=== PATIENT | female | born 1965 | race Caucasian/White ===

== ENCOUNTER 2020-05-02 19:56 | Inpatient (IN) | payer OTHER ==
[2020-05-02] MEDS ORDERED: Dextrose 50% Abboject 50 ML SYRINGE SLOW IVP PRN (20:56)
[2020-05-02] MEDS ORDERED: HUMULIN R 100 UNITS in Sodium Chloride 0.9% 100 ML IVPB SCH (21:00)
[2020-05-02] MEDS ORDERED: Dextrose 5 %-0.45 % NaCl 1,000 ML IV PRN (21:00)
[2020-05-02] MEDS ORDERED: Electrolyte Replacement Protocol FS PRN (21:00)
[2020-05-02] MEDS ORDERED: Sodium Chloride 0.9% 1,000 ML IV PRN ×4 (21:00)
[2020-05-02] MEDS ORDERED: Dextrose 5% in Water 1,000 ML IV PRN (21:00)
[2020-05-02] MEDS ORDERED: NS 0.9% w/ 20 MEQ KCL 1,000 ML/1,000 ML BAG IV PRN ×2 (21:00)
[2020-05-02] MEDS ORDERED: Insulin Regular 300 UNITS/3 ML VIAL IVP SCH (21:00)
[2020-05-02] MEDS ORDERED: D5 1/2 NS w/20 mEq KCL 1,000 ML IV PRN (21:00)
[2020-05-02 21:20] LABS: Anion Gap 22 mmol/L (10-20); BUN (Urea Nitrogen) 7 mg/dL (9.8-20.1); Calc. Creatinine Clearance 0 mL/min (70-130); Carbon Dioxide 11 mmol/L (22-29); Chloride 102 mmol/L (98-107); Glucose 212 mg/dL (70-105); Lipase 8 U/L (8-78); Potassium 3.5 mmol/L (3.5-5.1); Sodium 131 mmol/L (136-145)
[2020-05-02] MEDS ORDERED: Metoclopramide HCl 10 MG/2 ML VIAL ONE (21:28)
[2020-05-02] MEDS ORDERED: diphenhydrAMINE 50 MG/ML VIAL ONE (21:34)
[2020-05-02] MEDS ORDERED: Potassium Chloride 20 MEQ TAB ONE (21:34)
[2020-05-02] MEDS ORDERED: INSULIN REGULAR IN 0.9 % NACL 100 UNIT/100 ML BAG ONE (21:42)
[2020-05-02] MEDS ORDERED: Lidocaine Viscous Sol 2% 15 ml UD Cup ONE (22:09)
[2020-05-02] MEDS ORDERED: Mag-Al 1200 mg/1200 mg/30 ML UDCUP ONE (22:09)
[2020-05-03 00:35] VITALS: BMI 18.9
[2020-05-03] MEDS ORDERED: NS 0.9% w/ 20 MEQ KCL 1,000 ML IV PRN ×2 (00:45)
[2020-05-03] MEDS ORDERED: HUMULIN R 100 UNITS in Sodium Chloride 0.9% 100 ML IVPB SCH (00:45)
[2020-05-03] MEDS ORDERED: Dextrose 5 %-0.45 % NaCl 1,000 ML IV PRN (00:45)
[2020-05-03] MEDS ORDERED: Acetaminophen 325 MG TAB PO PRN (00:45)
[2020-05-03] MEDS ORDERED: Sodium Chloride 0.9% 1,000 ML IV PRN ×4 (00:45)
[2020-05-03] MEDS ORDERED: Electrolyte Replacement Protocol 1 EACH IVPB SCH (00:45)
--- NOTE | 2020-05-03 00:52 | PDOC.HHP ---
Hospitalist HPI - History of Present Illness Nausea and vomiting History of Present Illness: This is a 54-year-old female patient with a history of type 1 diabetes mellitus was transferred from [place] on account of DKA. Of note patient was recently hospitalized for DKA and discharged on 04/30/20 from [facility]. She notes her returning home blood sugars still remain high and she could not sleep. She denies any associated fever chills cough diarrhea shortness of breath or any other significant symptoms. She however had ongoing nausea and vomiting and abdominal pain that has she activated EMS. She was given Zofran and transported to [facility] for care.At [facility] she received 2 L normal saline and was transferred here for higher level care. On arrival here, she was hemodynamically stable besides respiratory rate in 25. She was started on DKA protocol and received GI cocktail diphenhydramine and potassium chloride. Hospitalist team was consulted to admit for DKA At arrival in [facility] blood pressures were 162/62, pulse 91, saturating 100% on room air. She was afebrile temperature 97.6. CBC showed leukocytosis of 12.2, hemoglobin of 16.3, platelets 303. Chemistry showed mild hyponatremia of 120, potassium 3.9, bicarb 8 and lactate was 1.2. Venous blood gases there showed pH of 7.1, PCO2 29.1. Blood glucose was 336. She received 2 L bolus normal saline Hospitalist ROS - Review of Systems Constitutional: denies: fever, chills, sweats, weakness Respiratory: denies: cough, dry, shortness of breath, hemoptysis Cardiovascular: denies: chest pain, palpitations, orthopnea, paroxysmal noc. dyspnea Gastrointestinal: reports: nausea, vomiting, abdominal pain. denies: diarrhea, constipation Genitourinary: denies: dysuria, frequency, incontinence, hematuria Neurological: denies: weakness, numbness, incoordination, change in speech All other systems reviewed; all pertinent +/- noted in HPI/Subj - Medication Medications: Medications: Currently refer to ambulatory order list. Allergies: Lorazepam, more Hospitalist History - Past Medical History Cardiac: reports: no pertinent history Endocrine: reports: Diabetes Other Medical History: Type 2 diabetes mellitus, COPD - Past Surgical History Other Surgical History: Breast implant - Family History Family History: reports: cancer, cardiac disorder, diabetes mellitus - Social History Smoking Status: Current every day smoker Alcohol: reports: None Living Situation: Alone (With a service dog) - Exam General Appearance: awake alert General - other findings: In mild acute distress. Eye: PERRL, anicteric sclera ENT: normocephalic atraumatic, no oropharyngeal lesions Neck: supple, symmetric, no JVD, no thyromegaly Heart: RRR, no murmur, no gallops, no rubs Respiratory: CTAB, no wheezes, no rales, no ronchi Gastrointestinal: soft, non-tender, non-distended, normal bowel sounds Extremities: no cyanosis, no clubbing, no edema Skin: normal turgor, no lesions, no rashes Neurological: cranial nerve grossly intact, normal sensation to touch, no focal deficits Psychiatric: normal affect, normal behavior, A&O x 3 Hospitalist Results - Labs Result Diagrams: 05/03/20 03:37 05/03/20 01:06 Lab results: Sodium 131 mmol/L (136-145) L 05/02/20 20:46 Potassium 3.5 mmol/L (3.5-5.1) 05/02/20 20:46 Chloride 102 mmol/L (98-107) 05/02/20 20:46 Carbon Dioxide 11 mmol/L (22-29) L 05/02/20 20:46 BUN 7 mg/dL (9.8-20.1) L 05/02/20 20:46 Creatinine 0.77 mg/dL (0.6-1.1) 05/02/20 20:46 Glucose 212 mg/dL (70-105) H 05/02/20 20:46 Calcium 8.0 mg/dL (7.8-10.44) 05/02/20 20:46 Troponin I Less than 0.010 ng/mL (< 0.028) 05/02/20 20:46 Lipase 8 U/L (8-78) 05/02/20 20:46 Hospitalist H&P A/P - Plan Plan: This is a 54-year-old female patient history of COPD type 1 diabetes mellitus presenting with nausea vomiting concerning for DKA. DKA This has been recurrent Unclear etiology. Troponin is negative, lactate within normal limits, has mild leukocytosis will check urinalysis She notes not having missed any of her insulin Previous episode may not have entirely resolved. We will continue on DKA protocol Monitor BMP hourly replace potassium and electrolytes Monitor glucose. Nausea and vomiting's As needed ondansetron Fluid replacement COPD Not in acute exacerbation Monitor. CODE STATUSfull code VTE prophylaxisLovenox
[2020-05-03] MEDS: Ondansetron PF 4 MG/2 ML Vial IVP PRN ×2 (01:29→09:43)
[2020-05-03 01:36] LABS: Anion Gap 16 mmol/L (10-20); BUN (Urea Nitrogen) 6 mg/dL (9.8-20.1); Calc. Creatinine Clearance 55 mL/min (70-130); Calcium 8.1 mg/dL (7.8-10.44); Carbon Dioxide 13 mmol/L (22-29); Chloride 104 mmol/L (98-107); Glucose 254 mg/dL (70-105); Potassium 3.3 mmol/L (3.5-5.1); Sodium 130 mmol/L (136-145)
--- NOTE | 2020-05-03 03:29 | PDOC.HHP ---
Hospitalist HPI - History of Present Illness Nausea vomiting Hospitalist ROS - Medication Medications: Active Medications Generic Name Dose Route Start Last Admin Trade Name Freq PRN Reason Stop Dose Admin Ondansetron HCl 4 mg 05/03/20 00:59 05/03/20 01:29 Ondansetron Pf 4 Mg/2 Ml Vial IVP 4 mg Q6H PRN Administration Nausea/Vomiting Hospitalist Results - Labs Result Diagrams: 05/03/20 01:06 Lab results: Sodium 130 mmol/L (136-145) L 05/03/20 01:06 Potassium 3.3 mmol/L (3.5-5.1) L 05/03/20 01:06 Chloride 104 mmol/L (98-107) 05/03/20 01:06 Carbon Dioxide 13 mmol/L (22-29) L 05/03/20 01:06 BUN 6 mg/dL (9.8-20.1) L 05/03/20 01:06 Creatinine 0.72 mg/dL (0.6-1.1) 05/03/20 01:06 Glucose 254 mg/dL (70-105) H 05/03/20 01:06 Calcium 8.1 mg/dL (7.8-10.44) 05/03/20 01:06 Troponin I Less than 0.010 ng/mL (< 0.028) 05/02/20 20:46 Lipase 8 U/L (8-78) 05/02/20 20:46
[2020-05-03] MEDS: D5 1/2 NS w/20 mEq KCL 1,000 ML IV PRN ×2 (03:40→09:34)
[2020-05-03 03:53] LABS: #Basophils 0.1 thou/uL (0.0-0.2); #Lymphocytes 3.1 thou/uL (1.20-3.40); #Monocytes 0.9 thou/uL (0.11-0.59); #Neutrophils 12.4 thou/uL (1.40-6.50); %Basophils 0.5 % (0.0-1.0); %Eosinophils 0.1 % (0.0-10.0); %Lymphocytes 18.7 % (21.0-51.0); %Monocytes 5.2 % (0.0-10.0); %Neutrophils 75.5 % (42.0-75.0); Mean Corpuscular HGB CONC 34.9 g/dL (32.0-36.0); Mean Corpuscular Hemoglobin 30.2 pg (27.0-31.0); Mean Corpuscular Volume 86.5 fL (78.0-98.0); Mean Platelet Volume 7.2 fL (7.4-10.4); Platelet Count 299 thou/uL (130-400); RBC Distribution Width 11.2 % (11.5-14.5); Red Blood Cell (RBC) Count 4.64 mill/uL (4.20-5.40); White Blood Cell (WBC) Count 16.4 thou/uL (4.8-10.8)
[2020-05-03 04:50] LABS: Anion Gap 13 mmol/L (10-20); BUN (Urea Nitrogen) 4 mg/dL (9.8-20.1); Calc. Creatinine Clearance 57 mL/min (70-130); Carbon Dioxide 13 mmol/L (22-29); Chloride 106 mmol/L (98-107); Glucose 239 mg/dL (70-105); Potassium 3.5 mmol/L (3.5-5.1); Sodium 128 mmol/L (136-145)
[2020-05-03 04:51] LABS: Anion Gap 11 mmol/L (10-20); BUN (Urea Nitrogen) 4 mg/dL (9.8-20.1); Calc. Creatinine Clearance 57 mL/min (70-130); Calcium 8.1 mg/dL (7.8-10.44); Carbon Dioxide 14 mmol/L (22-29); Chloride 106 mmol/L (98-107); Glucose 241 mg/dL (70-105); Potassium 3.4 mmol/L (3.5-5.1); Sodium 128 mmol/L (136-145)
[2020-05-03 05:53] LABS: Magnesium 1.5 mg/dL (1.6-2.6)
[2020-05-03 06:00] LABS: Phosphorus Less than 1.0 mg/dL (2.3-4.7)
[2020-05-03] MEDS ORDERED: Magnesium 2 GM/50 ML 2 GM in Premix Bag 1 BAG IVPB SCH (06:30)
[2020-05-03 07:17] VITALS: TEMP 98.6
[2020-05-03] MEDS ORDERED: Enoxaparin Sodium 40 MG/0.4 ML SYRINGE SC SCH (09:00)
[2020-05-03 09:30] LABS: Anion Gap 9 mmol/L (10-20); BUN (Urea Nitrogen) Less than 4 mg/dL (9.8-20.1); Calc. Creatinine Clearance 68 mL/min (70-130); Carbon Dioxide 13 mmol/L (22-29); Chloride 108 mmol/L (98-107); Glucose 144 mg/dL (70-105); Potassium 3.6 mmol/L (3.5-5.1); Sodium 126 mmol/L (136-145)
[2020-05-03] MEDS: Potassium Chloride 20 MEQ in Premix Bag 1 BAG IVPB SCH ×2 (09:35→14:04)
[2020-05-03 16:24] LABS: SARS-CoV-2 MS2 Positive; SARS-CoV-2 N Gene Negative; SARS-CoV-2 S Gene Negative; SARS-CoV-2 by NAA Not Detected (NotDetected); SARS-CoV-2 orf1ab Negative
--- NOTE | 2020-05-03 16:30 | DIS ---
DATE OF ADMISSION: 05/02/2020 DATE OF DISCHARGE: 05/03/2020 DISCHARGE DIAGNOSES: 1. Diabetic ketoacidosis. 2. Nausea and vomiting secondary to diabetic ketoacidosis. 3. Chronic obstructive pulmonary disease without exacerbation. 4. Diabetes mellitus, type 1. CONSULTATIONS: None. PERTINENT LABORATORY AND X-RAY FINDINGS: Sodium ranged between 126 to 131, potassium ranged between 3.3 to 3.6, carbon dioxide level ranged between 11 to 14. Anion gap ranged between 9 to 22. CBC showed a white blood cell count of 16.4, hemoglobin 14, hematocrit 40, and platelet count . Beta-hydroxybutyrate level 0.86. HOSPITAL COURSE: The patient was admitted to the intermediate care unit after presenting in transfer from [facility] due to diabetic ketoacidosis. The patient with initial venous blood gas showing a pH of 7.1 with associated hyperglycemia with blood glucose over 300. The patient received normal saline, IV fluid boluses, and was placed on insulin infusion. The patient underwent general DKA protocol with stabilization of vital signs and laboratory markers. The patient continued to receive DKA protocol; however, decided to leave against medical advice on 05/03. Job ID: [id number]
== END 2020-05-03 15:05 | disposition left against medical advice (07) | DRG 638 ==
LOC: ERS 19:56 → IMCU/EMU 22:20
PROVIDERS: ADMIT Student in an Organized Health Care Education/Training Program; ATTEND Student in an Organized Health Care Education/Training Program
DX: E10.10 Type 1 diabetes mellitus with ketoacidosis without coma (principal); E87.1 Hypo-osmolality and hyponatremia; Z20.828 Contact with and (suspected) exposure to other viral communicable diseases; J44.9 Chronic obstructive pulmonary disease, unspecified; F17.210 Nicotine dependence, cigarettes, uncomplicated; Z53.29 Procedure and treatment not carried out because of patient's decision for other reasons; Z88.5 Allergy status to narcotic agent; Z79.4 Long term (current) use of insulin; Z79.899 Other long term (current) drug therapy
CPT/HCPCS: 36415; 36416; 80048; 82010; 83690; 83735; 84100; 84484; 85025; 87635; 93005; J1200; J1650; J2405; J2765; J3475; J3480; U0003